=== PATIENT | female | born 2000 | race Two or more races ===

== ENCOUNTER 2022-07-04 15:06 | Emergency (ER) | payer OTHER ==
[~2022-07-04] VITALS: Ht 165.1 cm; Wt 64.9 kg
== END 2022-07-04 17:53 | disposition home or self-care (01) ==
LOC: ER 15:06
DX: N93.9 Abnormal uterine and vaginal bleeding, unspecified (principal); N83.02 Follicular cyst of left ovary; N83.01 Follicular cyst of right ovary